=== PATIENT | male | born 1975 | race Caucasian/White ===

== ENCOUNTER → 2021-06-02 11:15 | Outpatient (CLI) | payer BC, SELFPAY ==
--- NOTE | ~2021-06-02 | CT_ITS ---
EXAMINATION: CT diagnostic chest w con DATE: 06/02/2021 11:54 INDICATION: Abnormal chest x-ray. TECHNIQUE: Computed tomography (CT) of the chest was performed without intravenous contrast. The dose -length product was 540.95 mGy-cm. Automated exposure control and iterative reconstruction technique were employed. COMPARISON: None FINDINGS: Heart size is normal. No significant pleural or pericardial effusion. No evidence for aorti c aneurysm or dissection. No endobronchial lesions. No pneumothorax. No focal airspace consolidation. Mild thoracic spondylosis. No suspicious pulmonary nodules or masses. The upper abdomen is unremarka ble. IMPRESSION: 1. No acute cardiopulmonary disease. No significant thoracic abnormality. Reviewed, dictated and finalized at location A. [employer]
== END ==
PROVIDERS: PCP Family Medicine; Visit Provider Family Medicine
DX: R93.89 Abnormal findings on diagnostic imaging of other specified body structures (principal)
CPT/HCPCS: 71260; Q9967